=== PATIENT | female | born 1980 | race African-American/Black ===

== ENCOUNTER 2020-01-09 18:29 | Emergency (ER) | payer MEDICAID | END 2020-01-09 19:30 | disposition left against medical advice (07) | LOC: ER 18:29 | DX: S99.921A Unspecified injury of right foot, initial encounter (principal); Z53.21 Procedure and treatment not carried out due to patient leaving prior to being seen by health care provider; X58.XXXA Exposure to other specified factors, initial encounter; Y93.89 Activity, other specified; Y92.89 Other specified places as the place of occurrence of the external cause; Y99.8 Other external cause status ==

== ENCOUNTER 2020-01-10 11:02 | Emergency (ER) | payer MEDICAID ==
[~2020-01-10] VITALS: Ht 165.1 cm; Wt 93.1 kg
[2020-01-10 11:41] VITALS: BP 172/102
--- NOTE | 2020-01-10 11:49 | PHYS DOC ---
Past Medical History Past Medical History: Hypothyroid Past Surgical History: Hysterectomy Smoking Status: Current Every Day Smoker Alcohol Use: Occasionally General Adult EDM: Chief Complaint: ANKLE PROBLEM HPI: HPI: Patient is a 39 year old female employed at [employer] who presents to the ED today complaining of 8 out of 10 right ankle pain, symptoms began 3 days ago. Patient denies any known injury. States pain is worse on weightbearing. Denies anythin g specifically relieving the pain. Describes the pain as throbbing and intermittent. Review of Systems: Review of Systems: Constitutional: Denies fever or chills. [] Musculoskeletal: Reports right ankle pain Integument: Denies rash. [] Neurologic: Denies headache, focal weakness or sensory changes. [] Psychiatric: Denies depression or anxiety. [] Heart Score: Risk Factors: Risk Factors: DM, Current or recent (<one month) smoker, HTN, HLP, family history of CAD, obesity. Risk Scores: Score 0 - 3: 2.5% MACE over next 6 weeks - Discharge Home Score 4 - 6: 20.3% MACE over next 6 weeks - Admit for Clinical Observation Score 7 - 10: 72.7% MACE over next 6 weeks - Early Invasive Strategies Physical Exam: PE: Constitutional: Well developed, well nourished, no acute distress, non-toxic appearance. []. [] Cardiovascular:Heart rate regular rhythm, no murmur [] Lungs & Thorax: Bilateral breath sounds clear to auscultation [] Abdomen: Bowel sounds normal, soft, no tenderness, no masses, no pulsatile masses. [] Skin: Warm, dry, no erythema, no rash. [] Back: No tenderness, no CVA tenderness. [] Extremities: Right ankle with no obvious deformity, no edema, no ecchymosis, diffuse tenderness throughout the right ankle. Full range of motion to the right ankle. Full range of motion to the right foot and toes. +2 right pedal pulse. Cap refill less than 2 seconds the right toes. Neurologic: Alert and oriented X 3, normal motor function, normal sensory function, no focal deficits noted. [] Psychologic: Affect normal, judgement normal, mood normal. [] EKG: EKG: [] Radiology/Procedures: Radiology/Procedures: []PROCEDURE: ANKLE RIGHT 3V ANKLE RIGHT 3V DATE: 01/10/2020 11:44 AM INDICATION: Reason: anterior right ankle pain / Spl. Instructions: / History: COMPARISON: None. FINDINGS: Bones: There is no evidence of acute fracture or dislocation. Joints: The ankle mortise is congruent. No widening of the distal tibiofibular syndesmosis. Miscellaneous: None. IMPRESSION: No acute osseous abnormality. Electronically signed by: Christian Cox MD (01/10/2020 12:09 PM) [id number] DICTATED and SIGNED BY: CHRISTIAN COX MD DATE: 01/10/20 1209 Course & Med Decision Making: Course & Med Decision Making Pertinent Labs and Imaging studies reviewed. (See chart for details) This is a 39-year-old female patient presenting to the ED today with right ankle pain, no known injury. Right ankle x-rays interpreted by radiologist are negat kentrell for any acute findings. Acewrap applied to the right ankle by the heating technician, neurovascular exam is intact. Ice elevation encouraged. Follow-up with orthopedic doctor in 1 to 2 weeks if pain persist. Patient's blood pressure was 170s over low 100s. She denies history of hypertension. Encourage patient to follow-up with the primary care doctor for blood pressure monitoring and management. Other healthy measures recommended including exercise, weight loss, a healthy diet. Sebastian Disclaimer: Sebastian Disclaimer: This electronic medical record was generated, in whole or in part, using a voice recognition dictation system. Departure Departure Impression: Primary Impression: Right ankle sprain Qualified Codes: S93.401A - Sprain of unspecified ligament of right ankle, initial encounter Additional Impression: High blood pressure Qualified Codes: I10 - Essential (primary) hypertension Disposition: 01 HOME, SELF-CARE Condition: STABLE Referrals: UNKNOWN PCP NAME (PCP) RORY TENA MD follow up in 1-2 weeks Patient Instructions: Ankle Sprain Additional Instructions: You were evaluated in the emergency room for right ankle pain, your right ankle x-rays are negative for any acute findings. You could have sprained your right ankle. Try to ice and elevate the extremity. You can wrap the ankle with an Jamil bandage. You can take [id number] pain relievers as needed. Your blood pressure is also elevated. Consider following up with a primary care doctor for blood pressure management. Consider diet and exercise. Justicifation of Admission Dx: Justifications for Admission: Justification of Admission Dx: N/A MIKEY ROTHMAN APRN Jan 10, 2020 11:49
--- NOTE | 2020-01-10 12:12 | RAD ---
ANKLE RIGHT 3V DATE: 01/10/2020 11:44 AM INDICATION: Reason: anterior right ankle pain / Spl. Instructions: / History: COMPARISON: None. FINDINGS: Bones: There is no evidence of acute fracture or dislocation. Joints: The ankle mortise is congruent. No widening of the distal tibiofibular syndesmosis. Miscellaneous: None. IMPRESSION: No acute osseous abnormality. Electronically signed by: Omar Guevara MD (01/10/2020 12:09 PM) [id number]
== END 2020-01-10 12:38 | disposition home or self-care (01) ==
LOC: ER 11:02
DX: S93.491A Sprain of other ligament of right ankle, initial encounter (principal); I10 Essential (primary) hypertension; E03.9 Hypothyroidism, unspecified; F17.200 Nicotine dependence, unspecified, uncomplicated; Z90.710 Acquired absence of both cervix and uterus; X58.XXXA Exposure to other specified factors, initial encounter; Y93.89 Activity, other specified; Y92.89 Other specified places as the place of occurrence of the external cause; Y99.8 Other external cause status
CPT/HCPCS: 73610; 99283

== ENCOUNTER 2020-02-22 18:08 | Emergency (ER) | payer MEDICAID ==
[~2020-02-22] VITALS: Ht 165.1 cm; Wt 94.0 kg
--- NOTE | 2020-02-22 18:23 | PHYS DOC ---
Past Medical History Past Medical History: Hypothyroid Past Surgical History: Hysterectomy Smoking Status: Current Every Day Smoker Alcohol Use: Occasionally General Adult EDM: Chief Complaint: Palpitations HPI: HPI: Patient is a 39 year old female presents with the chief complaint of palpitations of her left chest on and off x 3 weeks lasting seconds. Patient also states she has occasional right arm numbness. Numbness is not associated with weakness. Numbness also comes and goes. Patient has a past medical history of hypothyroid and is on levothyroxine. Patient also complains of right ankle pain. States she sprained a few weeks ago . Pain in ankle continues on and off. Review of Systems: Review of Systems: Constitutional: Denies fever or chills. [] Eyes: Denies change in visual acuity. [] HENT: Denies nasal congestion or sore throat. [] Respiratory: Denies cough or shortness of breath. [] Cardiovascular: positive chest pain positive palpitations GI: Denies abdominal pain, nausea, vomiting, bloody stools or diarrhea. [] : Denies dysuria. [] Musculoskeletal: Denies back pain or joint pain. [positive ankle pain] Integument: Denies rash. [] Neurologic: Denies headache, focal weakness or sensory changes. [positive paresthesia right arm] Endocrine: Denies polyuria or polydipsia. [] Lymphatic: Denies swollen glands. [] Psychiatric: Denies depression or anxiety. [] Heart Score: Risk Factors: Risk Factors: DM, Current or recent (<one month) smoker, HTN, HLP, family history of CAD, obesity. Risk Scores: Score 0 - 3: 2.5% MACE over next 6 weeks - Discharge Home Score 4 - 6: 20.3% MACE over next 6 weeks - Admit for Clinical Observation Score 7 - 10: 72.7% MACE over next 6 weeks - Early Invasive Strategies Physical Exam: PE: Constitutional: Well developed, well nourished, no acute distress, non-toxic appearance. [] HENT: Normocephalic, atraumatic, bilateral external ears normal, oropharynx moist, no oral exudates, nose normal. [] Eyes: PERRLA, EOMI, conjunctiva normal, no discharge. [] Neck: Normal range of motion, no tenderness, supple, no stridor. [] Cardiovascular:Heart rate regular rhythm, no murmur [] Lungs & Thorax: Bilateral breath sounds clear to auscultation [] Abdomen: Bowel sounds normal, soft, no tenderness, no masses, no pulsatile masses. [] Skin: Warm, dry, no erythema, no rash. [] Back: No tenderness, no CVA tenderness. [] Extremities: No tenderness, no cyanosis, no clubbing, ROM intact, no edema. [] Neurologic: Alert and oriented X 3, normal motor function, normal sensory function, no focal deficits noted. [] Psychologic: Affect normal, judgement normal, mood normal. [] EKG: EKG: [] Radiology/Procedures: Radiology/Procedures: [] Impression: No acute fracture or dislocation ankle CXRAY -negative Blood pressure elevated 170/100. Treated with single dose catapress. Patient will need to follow up with PCP for futher evaluation and workup. Course & Med Decision Making: Course & Med Decision Making Pertinent Labs and Imaging studies reviewed. (See chart for details) [] Dragon Disclaimer: Dragon Disclaimer: This electronic medical record was generated, in whole or in part, using a voice recognition dictation system. Departure Departure Impression: Primary Impression: Palpitation Additional Impressions: Right ankle sprain Hypertension Disposition: HOME, SELF-CARE Condition: STABLE Referrals: UNKNOWN PCP NAME (PCP) Patient Instructions: Palpitations Justicifation of Admission Dx: Justifications for Admission: Justification of Admission Dx: N/A ROJELIO RAVI DO Feb 22, 2020 18:23
[2020-02-22 18:54] LABS: BASO % 1 % (0-3); EOS # 0.2 x10^3/uL (0.0-0.7); EOS % 3 % (0-3); HEMATOCRIT 34.9 % (36.0-47.0); HEMOGLOBIN 11.8 g/dL (12.0-15.5); LYMPH # 2.3 x10^3/uL (1.0-4.8); LYMPH % 37 % (24-48); MEAN CORPUSCULAR HEMOGLOBIN 30 pg (25-35); MEAN CORPUSCULAR HGB CONC 34 g/dL (31-37); MEAN CORPUSCULAR VOLUME 87 fL (79-100); MONO # 0.4 x10^3/uL (0.0-1.1); MONO % 7 % (0-9); NEUT # 3.3 x10^3/uL (1.8-7.7); NEUT % 53 % (31-73); PLATELET COUNT 309 x10^3/uL (140-400); RED BLOOD COUNT 4.01 x10^6/uL (3.50-5.40); RED CELL DISTRIBUTION WIDTH 13.5 % (11.5-14.5); WHITE BLOOD COUNT 6.3 x10^3/uL (4.0-11.0)
[2020-02-22 19:13] LABS: CALCIUM 8.8 mg/dL (8.5-10.1); CREATININE 0.6 mg/dL (0.6-1.0); GFR 134.7; POTASSIUM 4.5 mmol/L (3.5-5.1)
[2020-02-22 19:19] LABS: ALBUMIN 3.4 g/dL (3.4-5.0); TOTAL BILIRUBIN 0.3 mg/dL (0.2-1.0); TOTAL PROTEIN 6.9 g/dL (6.4-8.2)
[2020-02-22 20:38] VITALS: BP 179/101
--- NOTE | 2020-02-22 20:56 | RAD ---
CHEST AP ONLY Clinical Indication: Reason: palpitations / Spl. Instructions: / History: Comparison: None. Findings: The cardiomediastinal silhouette is normal. Lungs are clear. There is no pneumothorax. No pleural effusion is appreciated. No acute bone abnormality. IMPRESSION: No acute cardiopulmonary process. Electronically signed by: Sushil Marquez MD (02/22/2020 8:53 PM) [facility]
[2020-02-22] MEDS ORDERED: cloNIDine HCL 0.1 MG TABLET PO ONE (21:00)
--- NOTE | 2020-02-22 21:24 | RAD ---
Right ankle x-rays 3 views HISTORY: Right ankle pain. FINDINGS: No fracture. No dislocation. Mild calf and ankle soft tissue edema. IMPRESSION: No acute osseous injury. Electronically signed by: Andrzej Perez MD (02/22/2020 9:21 PM) [facility]
--- NOTE | 2020-02-26 03:33 | EKG ---
[facility] [address] [place] [address] Test Date: 2020-02-22 Test Time: 18:29:51 Pat Name: LITA BEDOYA Department: Room: Gender: F Logistics Project Manager: : 1980 Requested By: ROJELIO RAVI Order Number: [id number] Reading MD: Measurements Intervals [place] Rate: 66 P: 44 WA: 160 QRS: 27 QRSD: 72 T: 43 QT: 384 QTc: 404 Interpretive Statements SINUS RHYTHM NORMAL ECG RI6.01 Compared to ECG 02/22/2020 18:24:55 No significant changes
== END 2020-02-22 20:40 | disposition home or self-care (01) ==
LOC: ER 18:08
DX: S93.401A Sprain of unspecified ligament of right ankle, initial encounter (principal); R00.2 Palpitations; I10 Essential (primary) hypertension; R20.0 Anesthesia of skin; E03.9 Hypothyroidism, unspecified; X58.XXXA Exposure to other specified factors, initial encounter; Y93.89 Activity, other specified; Y92.89 Other specified places as the place of occurrence of the external cause; Y99.8 Other external cause status
CPT/HCPCS: 36415; 71045; 73610; 80053; 84484; 85025; 93005; 99285

== ENCOUNTER 2021-07-17 17:32 | Emergency (ER) | payer MEDICAID ==
[~2021-07-17] VITALS: Ht 165.1 cm; Wt 95.4 kg
[2021-07-17 17:36] VITALS: BP 165/83
--- NOTE | 2021-07-17 18:14 | PHYS DOC ---
Past Medical History Past Medical History: Hypothyroid Past Surgical History: Hysterectomy Smoking Status: Current Every Day Smoker Alcohol Use: Occasionally General Adult EDM: Chief Complaint: DENTAL PROBLEM HPI: HPI: Patient is a 40 year old female who presents with 3-day history of dental pain. Patient rates her pain 9/10 nonradiating in her lower jaw. Patient denies any injury or broken teeth. She also denies chest pain, palpitations, fever, chills, facial swelling. Review of Systems: Review of Systems: Constitutional: See HPI Eyes: Denies change in visual acuity, visual field deficits or discharge HENT: See HPI Respiratory: Denies cough or shortness of breath Cardiovascular: See HPI GI: Denies abdominal pain, nausea, vomiting, bloody stools or diarrhea : Denies dysuria or hematuria Musculoskeletal: Denies back pain or joint pain Integument: Denies rash or other skin lesion Neurologic: Denies headache, focal weakness or sensory changes All other systems reviewed and either negative or noncontributory except as mentioned in this note. Heart Score: C/O Chest Pain: No Allergies: Allergies: Allergies Coded Allergies Type Severity Reaction Last Updated Verified No Known Drug Allergies 02/22/20 No Physical Exam: PE: Constitutional: Well developed, well nourished, patient obviously in pain, non- toxic appearance. HENT: Normocephalic, atraumatic, no facial swelling appreciated, bilateral external ears normal, oropharynx moist, no oral exudates, no chipped/fractured dentition appreciated, no abscess noted, nose normal. Eyes: EOMI, conjunctiva normal, no discharge, no periorbital swelling. Neck: Normal range of motion, no tenderness, supple, no stridor. Cardiovascular: Heart rate regular rhythm, no obvious murmur. Lungs & Thorax: Bilateral breath sounds clear to auscultation. Skin: Warm, dry, no erythema, no rash. Neurologic: Alert and oriented x4, no focal deficits noted. Current Patient Data: Vital Signs: Vital Signs Date Time Temp Pulse Resp B/P (MAP) Pulse Ox O2 Delivery O2 Flow Rate FiO2 07/17/21 17:36 98.4 68 20 165/83 (110) 96 98.4 Course & Med Decision Making: Course & Med Decision Making Pertinent Labs and Imaging studies reviewed. (See chart for details) Patient provided with pain control and antibiotics. She was advised to follow- up with a dentist within the next week, and that the treatments provided to her today will improve her symptoms, but are not curative. Patient was advised dental infection can easily spread to the heart, and that it is very important that she receives follow-up care by a dentist. Patient understands and is agreeable with discharge plan. Sebastian Disclaimer: Sebastian Disclaimer: This electronic medical record was generated, in whole or in part, using a voice recognition dictation system. Departure Departure Impression: Primary Impression: Pain, dental Disposition: HOME / SELF CARE / HOMELESS Condition: STABLE Referrals: UNKNOWN PCP NAME (PCP) Patient Instructions: Dental Pain, [id number] Additional Instructions: EMERGENCY DEPARTMENT GENERAL DISCHARGE INSTRUCTIONS Thank you for coming to Emergency Department (ED) today and trusting us with you care. We trust that you had a positive experience in our Emergency Department. If you wish to speak to the department management, you may call the director at . YOUR FOLLOW UP INSTRUCTIONS ARE FOLLOWS: 1. Follow up with your primary care doctor. If you do not have a primary doctor, please ask for a resource list of physicians or clinics that may be able to assist you with follow up care. 2. The emergency provider has interpreted your imaging studies, if any were ordered. The radiology alignment specialist also reviewed them. If there is a change in the findings, you will be notified in 48 hours when at all possible. 3. If a lab test or culture has been done, your results will be reviewed and you will be notified if you need a change in treatment. 4. Follow instructions verbalized to you and refer to the printouts if needed. ADDITIONAL INSTRUCTIONS AND INFORMATION: 1. Your care today has been supervised by a physician who is specially trained in emergency care. Many problems require more than one evaluation for a complete diagnosis and treatment. We recommend that you schedule your follow up appointment as recommended to ensure complete treatment of you illness or injury. If you are unable to obtain follow up care and continue to have a problem, or if your condition worsens, we recommend that you return to the ED. 2. We are not able to safely determine your condition over the phone nor are we able to give sound medical advice over the phone. For these safety reasons, if you call for medical advice we will ask you to come to the ED for further evaluation. 3. If you have any questions regarding these discharge instructions please call the ED at . SAFETY INFORMATION: In the interest of safety, wellness, and injury prevention; we encourage you to wear your seat belt, if you smoke; quite smoking, and we encourage family to use a protective helmet for bicycling and other sporting events that present an increased risk for head injury. IF YOUR SYMPTOMS WORSEN OR NEW SYMPTOMS DEVELOP, OR YOU HAVE CONCERNS ABOUT YOUR CONDITION; OR IF YOUR CONDITION WORSENS WHILE YOU ARE WAITING FOR YOUR FOLLOW UP APPOINTMENT; EITHER CONTACT YOUR PRIMARY CARE DOCTOR, THE PHYSICIAN WHOSE NAME AND NUMBER YOU WERE GIVEN, OR RETURN TO THE ED IMMEDIATELY. Scripts Tramadol Hcl (TRAMADOL HCL) 50 Mg Tablet 50 MG PO Q6HRS PRN for PAIN, #12 TAB Prov: JERSON GREER 07/17/21 Amoxicillin/Potassium Clav (AMOX TR-K CLV 875-125 MG TAB) 1 Each Tablet 1 TAB PO BID, #19 TAB Prov: JERSON GREER 07/17/21 JERSON GREER Jul 17, 2021 18:14
[2021-07-17] MEDS ORDERED: AMOXICILLIN/K CLAV 875/125MG TABLET. PO ONE (18:15)
[2021-07-17] MEDS ORDERED: traMADol 50 MG TABLET PO ONE (18:15)
[2021-07-17] MEDS ORDERED: TRAM50TA PO (18:59)
[2021-07-17] MEDS ORDERED: AMOX1TAB11 PO (18:59)
== END 2021-07-17 19:18 | disposition home or self-care (01) ==
LOC: ER 17:32
DX: K08.89 Other specified disorders of teeth and supporting structures (principal); E03.9 Hypothyroidism, unspecified; F17.200 Nicotine dependence, unspecified, uncomplicated
CPT/HCPCS: 99283